=== PATIENT | female | born 1960 | race Caucasian/White ===

== ENCOUNTER → 2023-05-24 12:47 | Outpatient (REF) | payer OTHER, SELFPAY | LOC: HWRAD 12:47 | PROVIDERS: ATTENDING PHYSICIAN Internal Medicine Rheumatology; FAMILY PHYSICIAN Family Medicine | DX: M81.0 Age-related osteoporosis without current pathological fracture (principal); M85.89 Other specified disorders of bone density and structure, multiple sites | CPT/HCPCS: 77080; 77081 ==

== ENCOUNTER → 2024-02-03 12:43 | Outpatient (REF) | payer OTHER, SELFPAY | LOC: WDC 12:43 | PROVIDERS: ATTENDING PHYSICIAN Obstetrics & Gynecology; FAMILY PHYSICIAN Family Medicine | DX: Z12.31 Encounter for screening mammogram for malignant neoplasm of breast (principal) | CPT/HCPCS: 77063; 77067 ==

== ENCOUNTER 2024-12-02 15:56 | Emergency (ER) | payer OTHER, SELFPAY ==
[2024-12-02] VITALS (10 sets, daily range): BP systolic 102–141; BP diastolic 58–108; BMI 19.5
--- NOTE | 2024-12-02 16:04 | ED.GENMED ---
History of Present Illness
<Reilly Hernandez PA-C - Last Filed: 12/02/24 17:54>
General
Chief Complaint: Headache
Source: patient and spouse
Time Seen by Provider: 12/02/24 16:00
History of Present Illness
History of Present Illness:
64-year-old female with past medical history of rheumatoid arthritis (receives biologic infusion every 6 weeks) presenting to the ER for evaluation after she developed a sudden onset headache about 20 to 25 minutes prior to arrival while showering
this afternoon accompanied with persistent nausea and vomiting. Headache is described to be severe, diffuse, nonradiating and sharp pain, states she did not take anything for pain prior to arrival due to the acute nature of the headache and sudden
severity. Patient states she has no history of headaches and this is very atypical for her. She denies any other symptoms including focal weakness or numbness, visual changes, neck pain or stiffness, chest pain or shortness of breath, abdominal
pain, fevers or infectious symptoms. Family history was noncontributory for any acute neurologic problems including aneurysm or malignancy/tumors. Patient denies use of any anticoagulants but does note she takes Celebrex as part of her treatment
for her rheumatoid arthritis.
Past History
<Reilly Hernandez PA-C - Last Filed: 12/02/24 17:54>
Past History
ED Past Medical History: Other (Rheumatoid arthritis)
ED Past Surgical History: Orthopedic
Social History
Tobacco: Non-smoker
Alcohol: Occasional
Drug: None
Personal:
Living: with family
Review of Systems
<Reilly Hernandez PA-C - Last Filed: 12/02/24 17:54>
Review of Systems
All Other Systems: ROS reviewed and negative except as documented in HPI and ROS
Phy Exam
<Reilly Hernandez PA-C - Last Filed: 12/02/24 17:54>
Physical Exam
Physical Exam:
GENERAL: Alert , appears very uncomfortable, vomitus periorally and on her shirt, holding her head
HEAD: Normocephalic atraumatic
EYE: pupils equal and reactive, 4 mm bilateral, EOMI
NECK: Supple, no meningismus
ENT: o/p clr, mmm.
CARDIAC: Borderline tachycardic rate, normal rhythm
LUNGS: Clear breath sounds bilaterally, no acute respiratory distress, no wheezes/rales/rhonchi
ABDOMEN: Soft, without focal tenderness, no r/g, no cvat
NEUROLOGICAL: Alert and oriented, no focal neuro deficits, moves all extremities, intact and equal sensation upper and lower extremities, no subjective sensory deficits, follows commands
SKIN: Warm and dry, skin intact.
MUSCULOSKELETAL: No edema, well perfused.
PSYCH: Normal and appropriate interaction.
Scores
<Reilly Hernandez PA-C - Last Filed: 12/02/24 17:54>
NIH Stroke Score
Level of Consciousness: 0 - Alert
LOC Questions: 0-Answers both correctly
LOC Commands: 0-Performs both correctly
Best Horizontal Gaze: 0-Normal
Visual Davidson: 0=Normal, no visual loss
Facial Palsy: 0=Normal, symmetrical
Motor - Right Arm: 0=No drift 10 seconds
Motor - Left Arm: 0=No drift 10 seconds
Motor - Right Le-No drift 5 seconds
Motor - Left Le-No drift 5 seconds
Limb Ataxia: 0-Absent
Sensation: 0-Normal
Best Language: 0-No aphasia
Dysarthria: 0-Normal
Extinction and Inattention: 0-No abnormality
NIH Total Score:: 0
Thrombolytic Contraindication
Inclusion and Exclusion criteria reviewed: Yes
IAT Contraindications: NIHSS < 6
Heart Failure Risk
Heart Failure Risk Score: Not Applicable
Heart Score for Chest Pain Patients
STEMI patient?: Not applicable
Withdrawal Assessment of Alcohol
Withdrawal Assessment Completed?: Not applicable
<Saeid Otoole MD - Last Filed: 12/02/24 18:20>
NIH Stroke Score
NIH Total Score:: 0
Course
<Reilly Hernandez PA-C - Last Filed: 12/02/24 17:54>
Orders/Labs/Results
Orders:
Orders
12/02/24 16:01
Ondansetron Injectable [Zofran] 4 mg IV NOW STA
12/02/24 16:02
Electrocardiogram (*1) Urgent
Reason for Study: TIA/Stroke
CT HEAD STROKE ALERT W/o Cont Urgent
Comment:
Reason For Exam: sudden onset headache, slurred speech, vomiting
CT HEAD/NECK ANG STROKE ALERT Urgent
Comment:
Reason For Exam: sudden onset headache, slurred speech, vomiting
EKG- Treatment ONCE
0.9% Sodium Chloride 500 ml [Nss] 500 ml IV BOLUS
12/02/24 16:03
NEUROLOGY CONSULT Urgent
Consulting Provider: Benito Templeton
Was physician already notified: Yes
12/02/24 16:11
COVID-19 Antigen Urgent
Source: Nasal Swab
CRP [C-Reactive Protein] Urgent
Complete Blood Count/With Diff Urgent
Comprehensive Metabolic Panel Urgent
ESR [Erythrocyte Sed Rate] Urgent
Influenza A+B Rapid Molecular Urgent
RANI Source: Nasal Swab
Specimen Description:
12/02/24 16:26
Acetaminophen 1000MG/100Ml [Ofirmev] 1,000 mg in 100 ml IV ONCE
Acetaminophen IV Indication:: ED Narcotic Naive Pt-ONCE
12/02/24 16:39
Nicardipine 40 mg/200 ml [Cardene] 40 mg in 200 ml .ROUTE .STK-MED
12/02/24 16:49
Levetiracetam Injectable [Keppra] 1,000 mg IV NOW STA
12/02/24 16:51
Morphine Sulfate 4 mg IV NOW STA
12/02/24 16:58
Levetiracetam Injectable [Keppra] 500 mg .ROUTE .STK-MED ONE
12/02/24 17:00
Nicardipine 40 mg/200 ml [Cardene] 40 mg in 200 ml IV PER PROTOCOL
Initial dose in mg/hr, then titrate:: 5
Titrate to keep:: SBP 120 - 140 mmHg
Titrate by mg/hr:: 2.5 mg/hr
Frequency of titrations (minutes):: 5-15 minutes
Maximum dose in mg/hr:: 15
Begin to taper infusion when:: Remained at goal for 2hrs
Taper by mg/hr:: 2.5 mg/hr
Frequency of taper (minutes) if patient maintains goal:: every 15-30 minutes
Taper to off?: Yes
If infusion off & no longer maintaining goal:: Contact Provider
Abnormal Lab Results
12/02/24
16:11
WBC 11.5 H 10^3/uL
(4.8-10.8)
RBC 4.08 L 10^6/uL
(4.20-5.40)
MCH 32.6 H pg
(27.0-31.0)
MPV 10.9 H fL
(7.4-10.4)
Abs Immat Gran (auto) 0.2 H 10^3/uL
(0-0.05)
Absolute Lymphs (auto) 5.1 H 10^3/uL
(1.2-3.4)
Absolute Monos (auto) 0.9 H 10^3/uL
(0.1-0.6)
Immature Gran % 2.0 H %
(0-0.5)
Neutrophils % 40.7 L %
(42.2-75.2)
Carbon Dioxide 21 L mmol/L
(22-30)
BUN 20 H mg/dl
(7-17)
12/02/24 16:11
12/02/24 16:11
Vital Signs
Initial and Last Documented VS:
Initial Vital Signs
Temp
97.8 F
12/02/24 16:01
Last Documented Vital Signs
Temp Pulse Resp BP Pulse Ox
97.8 F 79 13 112/66 91
12/02/24 16:01 12/02/24 17:15 12/02/24 17:03 12/02/24 17:10 12/02/24 17:15
<Saeid Otoole MD - Last Filed: 12/02/24 18:20>
Orders/Labs/Results
Orders:
Orders
12/02/24 16:01
Ondansetron Injectable [Zofran] 4 mg IV NOW STA
12/02/24 16:02
Electrocardiogram (*1) Urgent
Reason for Study: TIA/Stroke
CT HEAD STROKE ALERT W/o Cont Urgent
Comment:
Reason For Exam: sudden onset headache, slurred speech, vomiting
CT HEAD/NECK ANG STROKE ALERT Urgent
Comment:
Reason For Exam: sudden onset headache, slurred speech, vomiting
EKG- Treatment ONCE
0.9% Sodium Chloride 500 ml [Nss] 500 ml IV BOLUS
12/02/24 16:03
NEUROLOGY CONSULT Urgent
Consulting Provider: Benito Templeton
Was physician already notified: Yes
12/02/24 16:11
COVID-19 Antigen Urgent
Source: Nasal Swab
CRP [C-Reactive Protein] Urgent
Complete Blood Count/With Diff Urgent
Comprehensive Metabolic Panel Urgent
ESR [Erythrocyte Sed Rate] Urgent
Influenza A+B Rapid Molecular Urgent
RANI Source: Nasal Swab
Specimen Description:
12/02/24 16:26
Acetaminophen 1000MG/100Ml [Ofirmev] 1,000 mg in 100 ml IV ONCE
Acetaminophen IV Indication:: ED Narcotic Naive Pt-ONCE
12/02/24 16:39
Nicardipine 40 mg/200 ml [Cardene] 40 mg in 200 ml .ROUTE .STK-MED
12/02/24 16:49
Levetiracetam Injectable [Keppra] 1,000 mg IV NOW STA
12/02/24 16:51
Morphine Sulfate 4 mg IV NOW STA
12/02/24 16:58
Levetiracetam Injectable [Keppra] 500 mg .ROUTE .STK-MED ONE
12/02/24 17:00
Nicardipine 40 mg/200 ml [Cardene] 40 mg in 200 ml IV PER PROTOCOL
Initial dose in mg/hr, then titrate:: 5
Titrate to keep:: SBP 120 - 140 mmHg
Titrate by mg/hr:: 2.5 mg/hr
Frequency of titrations (minutes):: 5-15 minutes
Maximum dose in mg/hr:: 15
Begin to taper infusion when:: Remained at goal for 2hrs
Taper by mg/hr:: 2.5 mg/hr
Frequency of taper (minutes) if patient maintains goal:: every 15-30 minutes
Taper to off?: Yes
If infusion off & no longer maintaining goal:: Contact Provider
Abnormal Lab Results
12/02/24
16:11
WBC 11.5 H 10^3/uL
(4.8-10.8)
RBC 4.08 L 10^6/uL
(4.20-5.40)
MCH 32.6 H pg
(27.0-31.0)
MPV 10.9 H fL
(7.4-10.4)
Abs Immat Gran (auto) 0.2 H 10^3/uL
(0-0.05)
Absolute Lymphs (auto) 5.1 H 10^3/uL
(1.2-3.4)
Absolute Monos (auto) 0.9 H 10^3/uL
(0.1-0.6)
Immature Gran % 2.0 H %
(0-0.5)
Neutrophils % 40.7 L %
(42.2-75.2)
Carbon Dioxide 21 L mmol/L
(22-30)
BUN 20 H mg/dl
(7-17)
12/02/24 16:11
12/02/24 16:11
Vital Signs
Initial and Last Documented VS:
Initial Vital Signs
Temp
97.8 F
12/02/24 16:01
Last Documented Vital Signs
Temp Pulse Resp BP Pulse Ox
97.8 F 79 13 112/66 91
12/02/24 16:01 12/02/24 17:15 12/02/24 17:03 12/02/24 17:10 12/02/24 17:15
<Reilly Hernandez PA-C - Last Filed: 12/02/24 17:54>
MDM/Problems Addressed
Differential Diagnosis Includes:
Subarachnoid Hemorrhage
Ruptured AVM
Subdural hemorrhage
Migraine headache
Hydrocephalus
GCA
Dehydration
Less concern for infectious etiology, meningitis/encephalitis
MDM/Problems Addressed:
64-year-old female presenting to the ER for evaluation of sudden onset headache approximately 20 minutes prior to arrival to the ER accompanied with multiple episodes of vomiting. Patient brought back immediately from triage secondary to her
presentation. Stroke alert was called although my suspicion for stroke is lower and I do have more concern for possible subarachnoid/AVM complication. CTA of the head and neck ordered in addition to the plain head CT. Will order medication based
off of CT. disposition pending.
Following my exam and based off of record review it appears patient did have breast cancer and surgery for this back in 2013.
<Reilly Hernandez PA-C - Last Filed: 12/02/24 17:54>
*Radiology
Radiology exam reviewed: radiology read reviewed
*Pulse Oximetry
SaO2: 98
Oxygen Mode of Delivery: Room air
Patient hypoxic: no
*Tassel Clipper Interpretation
Rate: normal
Rhythm: sinus
*Critical Care Note
Total Time (30-74mins, 75-104mins- exclusive of procedures): 45
comment:
Critical care statement: A total of 45 minutes of critical care time was provided for this patient. This includes management of unstable vital signs, evaluation of the patient at bedside, reviewing the patient's pertinent medical records, discussion
with consultants, review of old EKGs and review of pertinent medical records. This time with separate from time utilized to perform the aforementioned documented procedures
<Reilly Hernandez PA-C - Last Filed: 12/02/24 17:54>
Patient Management
Discussion with other providers: Safe Deposit Clerk and Radiologist
Escalation/DeEscalation of care consider admission/obs:
After patient was brought to CT scan it was noted that patient had a likely subarachnoid hemorrhage within the left parietal region. Patient was brought back to the ER where we initiated Cardene as patient's blood pressure systolically started to
get greater than 140. Patient's head of bed remained elevated. I spoke to the neurostroke team and neurosurgery at [facility], and Dr. Riojas accepts the patient in transfer. We did order additional Keppra. Patient started to complain of more
headache so morphine was ordered although she ultimately declined this. She no longer had any further vomiting. Following the Cardene patient's blood pressure did drop to around 100 systolically so the Cardene was turned off. Patient continues to
maintain her airway and remains without any acute focal neurologic deficits. Patient was transported via ground to [facility] for further care and potential intervention.
ED Attending Note
<Reilly Hernandez PA-C - Last Filed: 12/02/24 17:54>
-
Portions of this chart may have been created with voice recognition software.� Occasional wrong word or��sound alike� substitutions may have occurred due to the inherent limitations of voice recognition software.
<Saeid Otoole MD - Last Filed: 12/02/24 18:20>
ED Attending Note
Patient seen and examined by attending physician: Yes
I performed the substantive portion of visit, reviewed & personally made and approve the management plan that is documented in note by myself or ADAN.: Yes
ED Attending Note:
Patient with a thunderclap headache about 30 minutes prior to ER arrival. 1 episode of nausea and vomiting. Some tingling in her arms bilaterally. No other neurologic symptoms. No history of same. Nausea has resolved. No trauma. No thinners.
She does take Celebrex and methotrexate.
On exam patient's vital signs are stable. Blood pressure is reasonable. Heart rate is stable. She is warm and dry perfusing well. She is nonfocal. Speech is normal. Cranial nerves II through XII intact. No respiratory distress.
CT scan shows acute subarachnoid.
Head of bed elevated. No nicardipine at this time given stable blood pressure but will be ready if needed. Not midline contacted neurosurgery at [facility] immediately. Patient is referred for them. Unfortunately the helicopter is not flying. She
will go by to ground transport.
Patient had been rechecked multiple times. Multiple rechecks of the monitor. Blood pressures been stable. Update calls by pain for transport issues. Upon discharge patient complaining of a headache but stable vital signs and neurologically stable
CC=40 minutes
Discharge Plan
Departure
Patient Disposition: Acute Care Hospital
Date of Disposition: 12/02/24
Time of Disposition: 16:44
Discharge Problem:
Subarachnoid hemorrhage
Prescriptions:
No Action
methotrexate sodium 2.5 mg Tablet
10 mg PO WE
folic acid 1 mg tablet
1 mg PO DAILY
calcium carbonate [Calcium 500] 500 mg calcium (1,250 mg) Tablet
500 mg PO DAILY
celecoxib [Celebrex] 100 mg Capsule
100 mg PO DAILY
Simponi ARIA 12.5 mg/mL Solution
100 mg IV Q8W
Referrals:
UNKNOWN - PT NOT,INTERVIEWE [Unknown Provider]
Hospital Transfer
Other hospital: [facility]
I certify that the patient requires transfer: Yes
Discussed case with accepting physician: Dr. Riojas
Reason for transfer: higher level of care, medical necessity, availability of service and specialties available
Interventions
Interventions:
*Risk Screen - Suicide Last Done: 12/02/24 17:10
*General Assessment Last Done: 12/02/24 16:30
*Neglect/Abuse Screening Last Done: 12/02/24 16:30
*ED- Fall Risk Assessment Last Done: 12/02/24 16:30
*ED COVID-19 Vaccine History Last Done: 12/02/24 16:30
*Nursing Disposition Last Done: 12/02/24 17:55
ED- Neurological Assessment Last Done: 12/02/24 17:23
Discharge Date and Time
Discharge Date/Time: 12/02/24 17:55
Print Language: DIVEHI
[2024-12-02] MEDS: ZOFRAN 4 MG IV (16:09)
[2024-12-02 16:20] LABS: Hematocrit 37.5 % (37.0-47.0); Hemoglobin 13.3 g/dL (12.0-16.0); Mean Corp Hgb Conc. 35.5 g/dL (33.0-37.0); Mean Corpuscular Volume 91.9 fL (81.0-99.0); Nucleated Red Blood Cells % 0 %; Platelet Count 242 10^3/uL (130-400); Red Cell Dist. Width 12.9 % (11.5-14.5)
[2024-12-02] MEDS: NSS 500 IV (16:29)
[2024-12-02] MEDS: OFIRMEV 100 IV (16:29)
[2024-12-02 16:34] LABS: ALT (SGPT) 32 U/L (0-35); AST (SGOT) 36 U/L (14-36); Albumin 4.9 g/dl (3.5-5.0); Alkaline Phosphatase 52 U/L (38-126); Blood Urea Nitrogen 20 mg/dl (7-17); Calcium 10.2 mg/dl (8.4-10.2); Carbon Dioxide 21 mmol/L (22-30); Chloride 104 mmol/L (98-107); Estimated Creatinine Clearance 67 ml/min; Glucose 94 mg/dl (70-99); Potassium 3.5 mmol/L (3.5-5.1); Sodium 135 mmol/L (135-145); Total Protein 7.2 g/dl (6.3-8.2); eGFR > 60.00
[2024-12-02 16:37] LABS: C-Reactive Protein < 5.00 mg/L (0.0-10.00)
[2024-12-02 16:51] LABS: COVID-19 Antigen Negative (Negative)
[2024-12-02] MEDS: CARDENE 200 IV (16:55)
[2024-12-02] MEDS: KEPPRA 1000 MG IV (16:56)
[2024-12-02] MEDS: MORPHINE SULFATE 4 MG IV (17:36)
== END 2024-12-02 17:55 | disposition short-term general hospital (02) ==
LOC: EMR 15:56
PROVIDERS: Emergency Medicine; CONSULT PHYSICIAN Psychiatry & Neurology Neurology; EMERGENCY PHYSICIAN Emergency Medicine; FAMILY PHYSICIAN Family Medicine
DX: I60.9 Nontraumatic subarachnoid hemorrhage, unspecified (principal); M06.9 Rheumatoid arthritis, unspecified; Z85.3 Personal history of malignant neoplasm of breast
CPT/HCPCS: 99284; 96374; 96375; 96361; 70450; 70496; 70498; 80053; 85025; 85652; 86140; 87502; 87811; 93005; Q9967

== ENCOUNTER 2025-03-02 21:25 | Emergency (ER) | payer OTHER, SELFPAY ==
[2025-03-02 21:33] VITALS: BP 140/81
[2025-03-02 21:45] VITALS: BP 130/80
[2025-03-02 21:57] LABS: Hematocrit 39.4 % (37.0-47.0); Hemoglobin 13.1 g/dL (12.0-16.0); Mean Corp Hgb Conc. 33.2 g/dL (33.0-37.0); Mean Corpuscular Volume 94.7 fL (81.0-99.0); Nucleated Red Blood Cells % 0 %; Platelet Count 228 10^3/uL (130-400); Red Cell Dist. Width 12.4 % (11.5-14.5)
[2025-03-02 22:00] VITALS: BP 136/72
[2025-03-02 22:02] VITALS: BP 136/72; BMI 18.4
[2025-03-02 22:11] LABS: ALT (SGPT) 29 U/L (0-35); AST (SGOT) 29 U/L (14-36); Albumin 4.6 g/dl (3.5-5.0); Alkaline Phosphatase 47 U/L (38-126); Blood Urea Nitrogen 18 mg/dl (7-17); Calcium 9.3 mg/dl (8.4-10.2); Carbon Dioxide 26 mmol/L (22-30); Chloride 97 mmol/L (98-107); Estimated Creatinine Clearance 65 ml/min; Glucose 97 mg/dl (70-99); Potassium 4.7 mmol/L (3.5-5.1); Sodium 127 mmol/L (135-145); Total Protein 7.0 g/dl (6.3-8.2); eGFR > 60.00
[2025-03-02 23:00] VITALS: BP 114/71
--- NOTE | 2025-03-02 23:55 | ED.GENMED ---
History of Present Illness
General
Chief Complaint: Headache
Source: patient
Exam Limitations: none
Time Seen by Provider: 03/02/25 23:32
Nursing documentation reviewed up to this point in time: agreed with
History of Present Illness
History of Present Illness:
Note:
CHIEF COMPLAINT(S)
Headache and tingling in fingertips.
HISTORY OF PRESENT ILLNESS
The patient is a 64-year-old female with distant hx of breast cancer, rheumatoid arthritis, subarachnoid hemorrhage who presents with a headache that started around 5 p.m. today. She reports that headache has improving since onset. Additionally, the
patient reports tingling sensations in the fingertips of both hands. This tingling began a short time after the onset of the headache. The patient did not experience numbness or nausea; instead, she described 'tingling, like pins and needles.' The
patient recalls a similar sensation of tingling in her hands but does not recall this occurring during prior to a previous episode of intracranial bleeding, for which the etiology remained undetermined after two negative cerebral angiograms and
neuro evaluation. At that time, she underwent surgical intervention to place a drain for a few days. The current headache is the first she has experienced in about a month. She initially took regular-strength Tylenol, which provided no relief, but a
subsequent dose of extra-strength Tylenol resulted in some improvement. The patient denies other symptoms such as fever, visual changes, or nausea. She did mention occasional pain behind the eyes over the past few weeks, for which she consulted
neurology and she was told by her neurologist that some discomfort is to be expected intermittently. She was unaware of any precipitating cause for the low sodium and does not take diuretics. Her current medications include methotrexate weekly and
recent infusions of a biologic agent, infliximab, for rheumatoid arthritis. She denies chest pain, shortness of breath, abdominal pain.
CHRONIC MEDICAL CONDITIONS SIGNIFICANTLY AFFECTING CARE
Rheumatoid arthritis, Breast cancer (history), Hyponatremia (currently under investigation).
REVIEW OF SYSTEMS
- Neurological: Headache, tingling in fingertips
- Musculoskeletal: No significant joint swelling or recent changes.
PHYSICAL EXAM
General: Well appearing, alert, no acute distress.
Skin: Warm, dry.
Head: Normocephalic, atraumatic.
Neck: Supple, trachea midline.
Eyes, Ears, Nose, Mouth, and Throat: Oral mucosa moist
Cardiovascular: Regular rate and rhythm, no murmurs. Normal peripheral perfusion, No edema.
Respiratory: Respirations are non-labored.
Gastrointestinal: Abdomen nondistended. Non-tender to palpation
Back: Normal range of motion, Normal alignment.
Musculoskeletal: Normal ROM, normal strength. 5/5 strength in b/l upper and lower extremities.
Neurological: Alert and oriented to person, place, time, and situation, No focal neurological deficit observed. CNII-XII intact. Normal finger to nose, heel to bishop. Normal gait. Sensation intact.
Psychiatric: Cooperative, appropriate mood & affect.
PLAN
- Consultation with ED attending
- Consider repeat sodium level
- Continue monitoring neurologic symptoms and headache.
- Follow-up on management of rheumatoid arthritis and past breast cancer as indicated.
DIFFERENTIAL DIAGNOSIS
The Differential Diagnosis includes, in no particular order and is not limited to:
1. Migraine headache
2. Transient Ischemic Attack (TIA)
3. Hyponatremia-related neurological symptoms
4. Rheumatoid arthritis-related neuropathy
5. Medication side effects (methotrexate, infliximab)
6. Peripheral neuropathy
7. Recurrence of intracranial hemorrhage
8. Benign intracranial hypertension
9. Cervical radiculopathy
10. Multiple sclerosis
CHART REVIEW
Reviewed ER physician documentation from 12/02/24
LAB REVIEW
CBC unremarkable
CMP significant for hyponatremia 127
Patient states that she drinks plenty of water and urinates frequently
No diuretics
There is mildly elevated BUN
Reviewed case with ED attending Dr. Bradshaw, will give IV fluids and recheck sodium
Serum osmolality normal, urine osmolality low which could suggest hypervolemic hyponatremia/polydypsia or perhaps SIADH
Interestingly, repeat sodium is normal
Pt will repeat CMP with primary
MDM/DISPOSITION
The patient is a 64-year-old female with distant hx of breast cancer, rheumatoid arthritis, subarachnoid hemorrhage who presents with a headache that started around 5 p.m. today. She reports that headache has improving since onset. She had a prior
subarachnoid hemorrhage and her neurologist told her to report to the ER should she develop a headache with paresthesias to get a CT scan. CT scan performed within 6 hours of symptom onset is negative for any acute bleeding or abnormality. Patient
declining migraine cocktail.
Patient did take Tylenol prior to arrival with steady improvement in symptoms. Patient stable for outpatient follow up.
Past History
Past History
ED Past Medical History: Other (Rheumatoid arthritis)
ED Past Surgical History: Orthopedic
Social History
Tobacco: Non-smoker
Alcohol: Occasional
Drug: None
Personal:
Living: with family
Phy Exam
Physical Exam
Physical Exam:
see hpi
Course
Orders/Labs/Results
Orders:
Orders
03/02/25 21:41
CT Head W/o Iv Contrast Urgent
Comment:
Reason For Exam: headache, tingling to both hands since 2029 today
03/02/25 21:51
CMP [Comprehensive Metabolic Panel] Urgent
Complete Blood Count/With Diff Urgent
Serum Osmolality Urgent
Comment: ADD ON
03/02/25 23:54
Add On- LAB Urgent
Tests Added?: serum osmolality
Osmolality, Random Urine Urgent
Date Specimen was Collected: 03/02/25
Time Specimen was Collected: 23:59
0.9% Sodium Chloride 500 ml [Nss] 500 ml IV BOLUS
03/03/25
Electrocardiogram (*1) Stat
Reason for Study: Chest Pain
03/03/25 01:04
Sodium Urgent
Abnormal Lab Results
03/02/25 03/03/25
21:51 00:01
RBC 4.16 L 10^6/uL
(4.20-5.40)
MCH 31.5 H pg
(27.0-31.0)
Absolute Monos (auto) 0.7 H 10^3/uL
(0.1-0.6)
Monocytes % 9.8 H %
(1.7-9.3)
Sodium 127 L mmol/L
(135-145)
Chloride 97 L mmol/L
(98-107)
BUN 18 H mg/dl
(7-17)
Urine Osmolality 93 L mOsm/kg
(300-900)
03/02/25 21:51
03/03/25 01:04
Vital Signs
Initial and Last Documented VS:
Initial Vital Signs
Temp Pulse Resp BP Pulse Ox
98.7 F 71 14 140/81 100
03/02/25 21:33 03/02/25 21:33 03/02/25 21:33 03/02/25 21:33 03/02/25 21:33
Last Documented Vital Signs
Temp Pulse Resp BP Pulse Ox
98.7 F 70 17 121/77 100
03/02/25 21:33 03/03/25 01:51 03/03/25 01:51 03/03/25 01:51 03/03/25 01:51
*Pulse Oximetry
SaO2: 100
Oxygen Mode of Delivery: Room air
Patient hypoxic: no
*Critical Care Note
Total Time (30-74mins, 75-104mins- exclusive of procedures): Not Applicable
ED Attending Note
-
Portions of this chart may have been created with voice recognition software.� Occasional wrong word or��sound alike� substitutions may have occurred due to the inherent limitations of voice recognition software.
Discharge Plan
Departure
Patient Disposition: Home (Routine Discharge)
Date of Disposition: 03/03/25
Time of Disposition: 01:47
Patient with high blood pressure during this ER visit?: Yes
Condition: Good
Discharge Problem:
Headache, Hyponatremia
Instructions: Hyponatremia, BLOOD PRESSURE
Prescriptions:
No Action
methotrexate sodium 2.5 mg Tablet
10 mg PO WE
folic acid 1 mg tablet
1 mg PO DAILY
calcium carbonate [Calcium 500] 500 mg calcium (1,250 mg) Tablet
500 mg PO DAILY
Simponi ARIA 12.5 mg/mL Solution
100 mg IV Q8W
Referrals:
Armando Ornelas MD [Family Provider, [facility]]
Activity Restrictions/Additional Instructions:
Please call your neurologist to schedule follow-up appointment. Please have your CMP blood work repeated in 1 to 2 weeks with your primary care provider, please call to schedule appointment.
PLEASE NOT HESITATE TO RETURN TO THE ER SHOULD YOU DEVELOP WEAKNESS IN ONE-SIDED BODY VERSUS OTHER, INTRACTABLE NAUSEA OR VOMITING, VISUAL LOSS, SEVERE NECK PAIN, HEADACHE, CHEST PAIN, SHORTNESS OF BREATH, OR ANY OTHER SIGNS OR SYMPTOMS OR 70
Interventions
Interventions:
*Risk Screen - Suicide Last Done: 03/02/25 21:33
*General Assessment Last Done: 03/02/25 21:33
*Neglect/Abuse Screening Last Done: 03/02/25 21:33
*ED COVID-19 Vaccine History Last Done: 03/02/25 21:33
*ED Influenza Vaccine History Last Done: 03/02/25 21:33
*Nursing Disposition Last Done: 03/03/25 01:57
ED- Neurological Assessment Last Done: 03/02/25 22:03
Discharge Date and Time
Discharge Date/Time: 03/03/25 01:58
Print Language: CROATIAN
[2025-03-03] VITALS: BP 117/70
[2025-03-03] MEDS: NSS 500 IV (00:05)
[2025-03-03 01:28] LABS: Sodium 135 mmol/L (135-145)
[2025-03-03 01:51] VITALS: BP 121/77
== END 2025-03-03 01:58 | disposition home or self-care (01) ==
LOC: EMR 21:25
PROVIDERS: Emergency Medicine; Physician Assistant; EMERGENCY PHYSICIAN Student in an Organized Health Care Education/Training Program; FAMILY PHYSICIAN Family Medicine
DX: R51.9 Headache, unspecified (principal); E87.1 Hypo-osmolality and hyponatremia; M06.9 Rheumatoid arthritis, unspecified; Z85.3 Personal history of malignant neoplasm of breast
CPT/HCPCS: 99284; 96360; 70450; 80053; 83930; 83935; 84295; 85025; 93005